=== PATIENT | female | born 1930 | race Caucasian/White ===

== ENCOUNTER 2016-11-03 15:39 | Emergency (ER) | payer OTHER ==
[2016-11-03 16:34] LABS: MANUAL DIFF NEEDED? NO
[2016-11-03 16:37] LABS: BASO% 0.7 % (0.0-0.8); EOS# 0.59 X1000 (0.0-0.7); EOS% 10.3 % (0.0-10.0); HEMATOCRIT 36.2 % (37.0-47.0); HEMOGLOBIN 11.9 g/dL (12.0-16.0); LYMPH# 1.36 X1000 (1.2-3.4); LYMPH% 23.7 % (20.5-51.1); MCH 30.5 PG (27-31); MCHC 32.9 g/dL (33-37); MCV 92.8 FL (81-99); MONO# 0.57 X1000 (0.11-0.59); MONO% 9.9 % (1.7-9.3); MPV 9.5 FL (7.4-10.4); NEUT% 55.4 % (42.2-75.2); PLT 206 X1000 (130-400)
[2016-11-03 17:00] LABS: AGAP 15; ALBUMIN 3.7 g/dL (3.5-5.0); ALKALINE PHOSPHATASE 71 U/L (32-104); BUN 6 mg/dL (8-22); CALCIUM 8.7 mg/dL (8.8-10.2); CHLORIDE 94 mmol/L (98-107); COSMO 265; GOT 29 U/L (10-30); GPT 24 U/L (10-36); POTASSIUM 3.7 mmol/L (3.5-5.1); SODIUM 133 mmol/L (136-145); TCO2 24 mmol/L (25-35); TOTAL BILIRUBIN 0.37 mg/dL (0.20-1.00); TOTAL PROTEIN 5.9 g/dL (6.3-8.3)
--- NOTE | 2016-11-03 17:00 | PROVIDER DOCUMENTATION ---
HPI-Respiratory General - General Source: patient - History of Present Illness-Resp Quality of Pain: reports: tightness Severity in ED: reports: moderate Onset/Duration: reports: gradual, other (2016) Timing: reports: still present, constant, getting worse Context: denies: recent URI, out of meds Cough Quality/Degree: reports: no cough Episode Frequency: occasional episodes Current Respiratory Medication Therapy: Initiated see nurses note Modifying Factors: worse with: exertion Associated Symptoms: reports: shortness of breath, short of breath. denies: cough, fever/chills, flu-like symptoms, lightheadedness, nasal congestion, nasal drainage, wheezing Similar Symptoms Previously?: No Recently seen or treated by another doctor?: No <Reyes Biggs - Last Filed: 11/03/16 17:32> - General Source: patient, family - History of Present Illness-Resp Quality of Pain: reports: none Severity in ED: reports: mild Onset/Duration: reports: 1 week ago Timing: reports: getting worse Exposure: reports: unknown cause Cough Quality/Degree: reports: no cough Episode Frequency: rare episodes Current Respiratory Medication Therapy: Initiated albuterol/atrovent inhale Associated Symptoms: reports: shortness of breath, wheezing Similar Symptoms Previously?: Yes Recently seen or treated by another doctor?: Yes <Camacho Raphael - Last Filed: 11/03/16 18:34> - General Chief Complaint: Shortness of Breath Stated Complaint: EDEMA/LEGS/CHEST PRESSURE Time Seen by Provider: 11/03/16 15:55 Allergies/Adverse Reactions: Patient Allergies Allergy/AdvReac Type Severity Reaction Status Date / Time No Known Allergies Allergy Verified 11/03/16 16:41 Home Medications: Home Medication List Medication Instructions Recorded Confirmed Last Taken Type Esomeprazole Magnesium [Nexium 40 mg PO DAILY 04/17/15 11/03/16 11/10/15 History 24Hr] Levothyroxine [Synthroid] 125 microgm PO DAILY #0 tablet 04/21/15 11/03/1611/09 Rx Rivaroxaban [Xarelto] 20 mg PO DAILY 11/09/15 11/03/16 11/09/15 History Losartan Potassium [Cozaar] 100 mg PO QAM 11/12/15 11/03/16 Unknown History Albuterol [Albuterol Neb] 2.5 mg .SEE ORDER DIRECTED 11/03/16 11/03/16 Unknown History Amoxicillin [Amoxil] 250 mg PO QAM 11/03/16 11/03/16 Unknown History Furosemide [Lasix] 20 mg PO BID #60 tablet 11/03/16 Unknown Rx Levofloxacin [Levaquin] 500 mg PO DAILY #7 tablet 11/03/16 Unknown Rx Levothyroxine [Synthroid] 150 microgm PO DAILY 11/03/16 11/03/16 Unknown History - History of Present Illness-Resp Nature of Presenting Problem: patient is a 86 yo F that presents to Er with shortness of breath and leg swelling/erythema. Patient's symptoms have been going on for months. denies chest pain, fever/chills, or cough. has appointment with pcp tomorrow. (Reyes Biggs) 86 YO wf, NON SMOKER, C/O SOB, ORTHOPNEA AND GUILLEN. DENIES CP (Camacho Raphael ) Review of Systems - Adult - REVIEW OF SYSTEMS - ADULT Constitutional: denies: chills, fever Eyes: reports: no symptoms reported Ears, Nose, Mouth & Throat: reports: no symptoms reported Cardiovascular: reports: edema. denies: chest pain, palpitations, syncope Respiratory: reports: shortness of breath. denies: cough, wheezing Gastrointestinal: denies: abdominal pain, diarrhea, nausea, vomiting Genitourinary: reports: no symptoms reported Musculoskeletal: reports: no symptoms reported Integumentary: reports: see HPI Neurological: reports: no symptoms reported Psychiatric: reports: no symptoms reported Endocrine: reports: no symptoms reported Hematologic/Lymphatic: reports: no symptoms reported Allergic/Immunologic: reports: no symptoms reported All Other Systems: Reviewed and Negative <Reyes Biggs - Last Filed: 11/03/16 17:32> - REVIEW OF SYSTEMS - ADULT Constitutional: reports: no symptoms reported Eyes: reports: no symptoms reported Ears, Nose, Mouth & Throat: reports: no symptoms reported Cardiovascular: reports: see HPI, edema, irregular heart rate, orthopnea, PND Respiratory: reports: see HPI, dyspnea on exertion, shortness of breath, wheezing Gastrointestinal: reports: no symptoms reported Genitourinary: reports: no symptoms reported Musculoskeletal: reports: no symptoms reported Integumentary: reports: no symptoms reported Neurological: reports: no symptoms reported Psychiatric: reports: no symptoms reported Endocrine: reports: no symptoms reported Hematologic/Lymphatic: reports: no symptoms reported Allergic/Immunologic: reports: no symptoms reported <Camacho Raphael - Last Filed: 11/03/16 18:34> Past History - Adult - PAST MEDICAL HISTORY-ADULT Review of Records: reports: Old Records Reviewed, Nursing Assessment Review, Medications Reviewed Cardiovascular: reports: arrhythmia, HTN - IMMUNIZATION STATUS Childhood Immunizations: See Nurse Assessment Flu Vaccine: See Nurse Assessment - FAMILY HISTORY Family History: reviewed, not pertinent <Reyes Biggs - Last Filed: 11/03/16 17:32> - PAST MEDICAL HISTORY-ADULT Review of Records: reports: Old Records Reviewed, Nursing Assessment Review, Medications Reviewed Major Childhood Illnesses: reports: denies history <Camacho Raphael - Last Filed: 11/03/16 18:34> Physical Exam-General - PHYSICAL EXAM-ADULT Initial Vital Signs Reviewed: Yes - CONSTITUTIONAL General Appearance: alert, no apparent distress - EYES Eyes: PERRL/EOMI, pink conjunctivae - HEAD, EARS, NOSE, MOUTH & THROAT HENMT: normocephalic/atraumatic, moist mucous membranes, normal ENT inspection - NECK Neck: full range of motion, normal inspection - RESPIRATORY Respiratory: no respiratory distress, no accessory muscle use, rales (bibasilar scattered) - CARDIOVASCULAR Cardiovascular: regular rate, rhythm, no JVD, no murmur - GASTROINTESTINAL (ABDOMEN) Abdominal Exam: normal bowel sounds, non tender, soft, no organomegaly, no pulsatile mass - MUSCULOSKELETAL Extremity: normal capillary refill, erythema (bilateral lower leg), pedal edema (3 plus pitting edema bilaterally) - SKIN Integumentary: normal turgor, warm/dry - NEUROLOGIC Neurologic: grossly normal, no motor/sensory deficits - PSYCHIATRIC Psych/Mental Status: normal mood/affect, normal thought content, normal thought process, oriented x 3 <Reyes Biggs - Last Filed: 11/03/16 17:32> - PHYSICAL EXAM-ADULT Initial Vital Signs Reviewed: Yes - CONSTITUTIONAL General Appearance: appears well, alert, no apparent distress - EYES Eyes: PERRL/EOMI, pink conjunctivae - HEAD, EARS, NOSE, MOUTH & THROAT HENMT: normocephalic/atraumatic, moist mucous membranes, normal ENT inspection - NECK Neck: non-tender, full range of motion - RESPIRATORY Respiratory: chest non-tender, lungs clear, normal breath sounds - CARDIOVASCULAR Cardiovascular: normal peripheral pulses, irregularly irregular - GASTROINTESTINAL (ABDOMEN) Abdominal Exam: normal bowel sounds, non tender, soft - LYMPHATIC Lymphatic: no adenopathy - MUSCULOSKELETAL Back Exam: normal inspection Extremity: erythema, pedal edema Peripheral Pulses: radial (R): 3+, radial (L): 3+ - SKIN Integumentary: normal color - NEUROLOGIC Neurologic: grossly normal <Camacho Raphael - Last Filed: 11/03/16 18:34> Progress - EKG 1 Rhythm: NSR - XRAY 1 XRAY Study: Chest Impression: Abnormal XRAY Interpretation: stable chest <Reyes Biggs - Last Filed: 11/03/16 17:32> <Camacho Raphael - Last Filed: 11/03/16 18:34> - PLAN OF CARE/RESULTS Progress/Plan/Lab Results: Laboratory Tests 11/03/16 11/03/16 11/03/16 15:32 15:32 15:32 WBC 5.73 RBC 3.90 L Hgb 11.9 L Hct 36.2 L MCV 92.8 MCH 30.5 MCHC 32.9 L RDW Std Deviation 12.4 Plt Count 206 MPV 9.5 Immature Gran % (Auto) 0.0 Neut % (Auto) 55.4 Lymph % (Auto) 23.7 [place] % (Auto) 9.9 H Eos % (Auto) 10.3 H Baso % (Auto) 0.7 Immature Gran # (Auto) 0.00 Neut # (Auto) 3.17 Lymph # (Auto) 1.36 Knott # (Auto) 0.57 Eos # (Auto) 0.59 Baso # (Auto) 0.04 Sodium 133 L Potassium 3.7 Chloride 94 L Carbon Dioxide 24 L Anion Gap 15 BUN 6 L Creatinine 0.8 Estimated GFR/1.73 m2 > 60 BUN/Creatinine Ratio 8 Glucose 117 H Calculated Osmolality 265 Calcium 8.7 L Total Bilirubin 0.37 AST 29 ALT 24 Alkaline Phosphatase 71 Total Protein 5.9 L Albumin 3.7 Globulin 2.2 Albumin/Globulin Ratio 1.7 TSH 0.57 Urine Source Urine Color Urine Turbidity Urine pH Ur Specific [place] Urine Protein Ur Glucose (Stick) Ur Ketones (Stick) Urine Blood Urine Nitrite Urine Bilirubin Urobilinogen Dipstick Urine Leukocytes Urine WBC (Auto) Urine RBC (Auto) U Epithel Cells (Auto) Urine Bacteria (Auto) 11/03/16 17:04 WBC RBC Hgb Hct MCV MCH MCHC RDW Std Deviation Plt Count MPV Immature Gran % (Auto) Neut % (Auto) Lymph % (Auto) [place] % (Auto) Eos % (Auto) Baso % (Auto) Immature Gran # (Auto) Neut # (Auto) Lymph # (Auto) [place] # (Auto) Eos # (Auto) Baso # (Auto) Sodium Potassium Chloride Carbon Dioxide Anion Gap BUN Creatinine Estimated GFR/1.73 m2 BUN/Creatinine Ratio Glucose Calculated Osmolality Calcium Total Bilirubin AST ALT Alkaline Phosphatase Total Protein Albumin Globulin Albumin/Globulin Ratio TSH Urine Source CLEAN CATCH Urine Color YELLOW Urine Turbidity CLEAR Urine pH 6.5 Ur Specific [place] 1.003 Urine Protein NEGATIVE Ur Glucose (Stick) NEGATIVE Ur Ketones (Stick) NEGATIVE Urine Blood SMALL A Urine Nitrite NEGATIVE Urine Bilirubin NEGATIVE Urobilinogen Dipstick NORMAL Urine Leukocytes NEGATIVE Urine WBC (Auto) <10 Urine RBC (Auto) <10 U Epithel Cells (Auto) <10 Urine Bacteria (Auto) NEGATIVE Orders Category Date Time Status CHEST-PORTABLE [RAD] Stat Exams 11/03/16 16:27 Completed BNP [PRO B-NATRIURETIC PEPTIDE] Stat Lab 11/03/16 17:39 Ordered CBC WITH ELECTRONIC DIFF [HEME] Stat Lab 11/03/16 15:32 Completed COMPREHENSIVE METABOLIC PANEL [CHEM] Stat Lab 11/03/16 15:32 Completed TSH Stat Lab 11/03/16 15:32 Completed UA NIMS W/REFLEX CULT [URINALYSIS] Stat Lab 11/03/16 17:04 Completed EKG [EKG] Stat Ther 11/03/16 15:47 Ordered Vital Signs Temp Pulse Resp BP Pulse Ox 11/03/16 15:41 98.0 F 80 22 180/74 98 No Known Allergies Allergy (Verified 11/03/16 16:41) Esomeprazole Magnesium [Nexium 24Hr] 40 mg PO DAILY 04/17/15 Levothyroxine [Synthroid] 125 microgm PO DAILY #0 tablet 04/21/15 Rivaroxaban [Xarelto] 20 mg PO DAILY 11/09/15 Losartan Potassium [Cozaar] 100 mg PO QAM 11/12/15 Albuterol [Albuterol Neb] 2.5 mg .SEE ORDER DIRECTED 11/03/16 Amoxicillin [Amoxil] 250 mg PO QAM 11/03/16 Levothyroxine [Synthroid] 150 microgm PO DAILY 11/03/16 Laboratory 11/03/16 11/03/16 11/03/16 17:04 15:32 15:32 WBC RBC Hgb Hct MCV MCH MCHC RDW Std Deviation Plt Count MPV Immature Gran % (Auto) Neut % (Auto) Lymph % (Auto) [place] % (Auto) Eos % (Auto) Baso % (Auto) Immature Gran # (Auto) Neut # (Auto) Lymph # (Auto) [place] # (Auto) Eos # (Auto) Baso # (Auto) Sodium 133 L Potassium 3.7 Chloride 94 L Carbon Dioxide 24 L Anion Gap 15 BUN 6 L Creatinine 0.8 Estimated GFR/1.73 m2 > 60 BUN/Creatinine Ratio 8 Glucose 117 H Calculated Osmolality 265 Calcium 8.7 L Total Bilirubin 0.37 AST 29 ALT 24 Alkaline Phosphatase 71 Total Protein 5.9 L Albumin 3.7 Globulin 2.2 Albumin/Globulin Ratio 1.7 TSH 0.57 Urine Source CLEAN CATCH Urine Color YELLOW Urine Turbidity CLEAR Urine pH 6.5 Ur Specific [place] 1.003 Urine Protein NEGATIVE Ur Glucose (Stick) NEGATIVE Ur Ketones (Stick) NEGATIVE Urine Blood SMALL A Urine Nitrite NEGATIVE Urine Bilirubin NEGATIVE Urobilinogen Dipstick NORMAL Urine Leukocytes NEGATIVE Urine WBC (Auto) <10 Urine RBC (Auto) <10 U Epithel Cells (Auto) <10 Urine Bacteria (Auto) NEGATIVE 11/03/16 15:32 WBC 5.73 RBC 3.90 L Hgb 11.9 L Hct 36.2 L MCV 92.8 MCH 30.5 MCHC 32.9 L RDW Std Deviation 12.4 Plt Count 206 MPV 9.5 Immature Gran % (Auto) 0.0 Neut % (Auto) 55.4 Lymph % (Auto) 23.7 [place] % (Auto) 9.9 H Eos % (Auto) 10.3 H Baso % (Auto) 0.7 Immature Gran # (Auto) 0.00 Neut # (Auto) 3.17 Lymph # (Auto) 1.36 [place] # (Auto) 0.57 Eos # (Auto) 0.59 Baso # (Auto) 0.04 Sodium Potassium Chloride Carbon Dioxide Anion Gap BUN Creatinine Estimated GFR/1.73 m2 BUN/Creatinine Ratio Glucose Calculated Osmolality Calcium Total Bilirubin AST ALT Alkaline Phosphatase Total Protein Albumin Globulin Albumin/Globulin Ratio TSH Urine Source Urine Color Urine Turbidity Urine pH Ur Specific [place] Urine Protein Ur Glucose (Stick) Ur Ketones (Stick) Urine Blood Urine Nitrite Urine Bilirubin Urobilinogen Dipstick Urine Leukocytes Urine WBC (Auto) Urine RBC (Auto) U Epithel Cells (Auto) Urine Bacteria (Auto) (Camacho Raphael) Departure <Reyes Biggs - Last Filed: 11/03/16 17:32> - Departure Time of Disposition Order: 18:04 Certified Medical Emergency: Emergent <Camacho Raphael - Last Filed: 11/03/16 18:34> - Departure DIAGNOSIS: Congestive heart failure (CHF) Qualifiers: Congestive heart failure type: combined Congestive heart failure chronicity: acute on chronic Qualified Code(s): I50.43 - Acute on chronic combined systolic (congestive) and diastolic (congestive) heart failure Cellulitis Qualifiers: Site of cellulitis of extremity: lower extremity Disposition: HOME 01 Condition: Fair Prescriptions: Furosemide [Lasix] 20 mg PO BID #60 tablet Levofloxacin [Levaquin] 500 mg PO DAILY #7 tablet Referrals: Luca Anderson MD [Primary Care Provider] - Attestation - Scribe Verification/Attestation Scribe:: Reyes Biggs Acting as Scribe for:: Camacho Raphael Scribe documention review:: This chart was documented by a scribe and accurately reflects the service the provider performed and the decisions made by the provider. <Reyes Biggs - Last Filed: 11/03/16 17:32> Physician Attestation - Physician Attestation I, the provider, attest to the following statement:: Camacho Raphael Physician documentation Attestation:: This documentation recorded by the scribe accurately reflects the service I personally performed and the decisions made by me. <Reyes Biggs - Last Filed: 11/03/16 17:32>
--- NOTE | 2016-11-03 17:01 | Diag Imaging Result Document ---
PROCEDURE NAME: CHEST-PORTABLE - 11/03/2016 AP PORTABLE CHEST: TIME: 1635 hours FINDINGS: The appearance of the chest has not changed significantly since 11/13/2015 considering differences in inspiration. The right hemidiaphragm is somewhat elevated as it was on the previous study and that of 11/09/2015. IMPRESSION: Stable chest.
[2016-11-03 17:05] LABS: URINE CULTURE NEEDED? NO; URINE MICRO REVIEW NEEDED? NO; URINE SOURCE CLEAN CATCH
[2016-11-03 17:10] LABS: BILIRUBIN URINE NEGATIVE (NEGATIVE); BLOOD URINE SMALL (NEGATIVE); COLOR YELLOW; GLUCOSE URINE NEGATIVE (NEGATIVE); LEUKOCYTES URINE NEGATIVE (NEGATIVE); NITRITE URINE NEGATIVE (NEGATIVE); PH URINE 6.5; PROTEIN URINE NEGATIVE (NEGATIVE); SP GRAVITY URINE 1.003; TURBIDITY URINE CLEAR (CLEAR); UROBILINOGEN URINE NORMAL (NORMAL)
[2016-11-03 17:12] LABS: UR EPITHELIAL CELLS <10 /HPF (<10); URINE BACTERIA NEGATIVE /HPF; URINE RBC <10 /HPF (<10); URINE WBC <10 /HPF (<10)
--- NOTE | 2016-11-03 17:20 | ED EKG INTERP ---
EKG Interpretation - EKG Time of EKG reading by physician:: 15:54 EKG Read and Signed by:: Rudolph Avila EKG Interpretation (*Must complete 3 of following elements*): Abnormal Rate: 72 Rhythm: NSR [place]: normal QRS: normal ST Wave: non-specific ST changes Comments: Prolonged QT Attestation - Scribe Verification/Attestation Scribe:: Reyes Biggs Acting as Scribe for:: Rudolph Avila Scribe documention review:: This chart was documented by a scribe and accurately reflects the service the provider performed and the decisions made by the provider. Physician Attestation - Physician Attestation I, the provider, attest to the following statement:: Rudolph Avila Physician documentation Attestation:: This documentation recorded by the scribe accurately reflects the service I personally performed and the decisions made by me.
[2016-11-03] MEDS ORDERED: LASIX LIQUID PO ONE (18:18)
[2016-11-03] MEDS ORDERED: LEVAQUIN PO ONE (18:31)
[2016-11-03 18:32] VITALS: BP 158/88
--- NOTE | 2016-11-04 06:02 | EKG Report ---
Test Performed on : 11/03/2016 3:54:26 PM Test Reason : sob Blood Pressure : / mmHG Vent. Rate : 072 BPM Atrial Rate : 072 BPM P-R Int : 168 ms QRS Dur : 084 ms QT Int : 436 ms P-R-T Axes : 087 054 074 degrees QTc Int : 477 ms Normal sinus rhythm. Nonspecific T wave abnormality Prolonged QT Abnormal ECG When compared with ECG of 12-NOV-2015 09:14, No significant change was found Unconfirmed Result
== END 2016-11-03 19:18 | disposition home or self-care (01) ==
LOC: ED 15:39
DX: I50.43 Acute on chronic combined systolic (congestive) and diastolic (congestive) heart failure (principal); L03.115 Cellulitis of right lower limb; L03.116 Cellulitis of left lower limb; R06.02 Shortness of breath; R06.2 Wheezing; R22.40 Localized swelling, mass and lump, unspecified lower limb; R06.01 Orthopnea; R06.09 Other forms of dyspnea; Z79.899 Other long term (current) drug therapy; R60.9 Edema, unspecified; I49.9 Cardiac arrhythmia, unspecified; I10 Essential (primary) hypertension; Z79.01 Long term (current) use of anticoagulants
CPT/HCPCS: 36415; 71010; 80053; 81001; 83880; 84443; 85025; 93005; 99284

== ENCOUNTER 2017-04-08 17:40 | Inpatient (IN) ==
[2017-04-08 19:33] LABS: MANUAL DIFF NEEDED? NO
[2017-04-08 19:38] LABS: BASO% 0.5 % (0.0-0.8); EOS# 0.21 X1000 (0.0-0.7); EOS% 3.3 % (0.0-10.0); HEMATOCRIT 33.4 % (37.0-47.0); HEMOGLOBIN 10.9 g/dL (12.0-16.0); IMM GRAN# 0.05 X1000 (0.0-0.04); IMM GRAN% 0.8 % (0.0-0.5); LYMPH# 1.25 X1000 (1.2-3.4); LYMPH% 19.6 % (20.5-51.1); MCH 30.3 PG (27-31); MCHC 32.6 g/dL (33-37); MCV 92.8 FL (81-99); MONO# 0.57 X1000 (0.11-0.59); MONO% 8.9 % (1.7-9.3); MPV 9.6 FL (7.4-10.4); NEUT% 66.9 % (42.2-75.2); PLT 216 X1000 (130-400)
[2017-04-08 19:47] LABS: INR 1.15; PROTIME 12.2 Seconds (9.2-11.7); PTT 25.8 Seconds (22.0-36.0)
[2017-04-08 19:48] LABS: AGAP 16; ALBUMIN 3.5 g/dL (3.5-5.0); ALKALINE PHOSPHATASE 75 U/L (32-104); BUN 17 mg/dL (8-22); CALCIUM 8.4 mg/dL (8.8-10.2); CHLORIDE 97 mmol/L (98-107); COSMO 281; GOT 22 U/L (10-30); GPT 12 U/L (10-36); POTASSIUM 4.7 mmol/L (3.5-5.1); SODIUM 139 mmol/L (136-145); TCO2 26 mmol/L (25-35); TOTAL BILIRUBIN 0.32 mg/dL (0.20-1.00); TOTAL PROTEIN 6.3 g/dL (6.3-8.3)
--- NOTE | 2017-04-08 20:07 | Diag Imaging Result Doc PS360 ---
EXAM: HEAD/C-SPINE W/O CONTRAST HISTORY: fall, pain TECHNIQUE: CT of the head with out contrast; CT of the cervical spine, decreased dose (clarity.) COMMENT: There are calcifications in the left vertebral and both internal carotid arteries. There are patchy lucencies in the white matter of both hemispheres. There is no evidence of mass effect, bleed, or abnormal extra-axial fluid collection. The white matter changes appear to be worse than on the previous examination of 02/01/2012 particularly in the periatrial region of both parietal lobes. There are no acute bony abnormalities. Cervical spine: There is multilevel hypertrophic facet arthropathy. This appears worse on the right at the C2-3 level and on the left at the C3-4 level. There is no evidence of acute fracture or subluxation. The facets are aligned. No prevertebral soft tissue swelling is present. IMPRESSION: 1. Chronic ischemic microvascular disease. No evidence of acute intracranial disease. 2. Degenerative facet arthropathy. No evidence of acute bony disease in the cervical spine. Electronically signed by Howard Briggs 04/08/2017 8:05 PM
--- NOTE | 2017-04-08 20:11 | Diag Imaging Result Doc PS360 ---
EXAM: PELVIS W/O CONTRAST HISTORY: fall and pain TECHNIQUE: CT of the bony pelvis COMMENT: There are degenerative facet changes at L4-5 and vacuum disc phenomenon at L5-S1 and L4-5. There is a nondisplaced fracture of the anterior and posterior left pubic ramus. The fracture may also extend through the body of the pubic bone. These findings were not present on 12/05/2012. IMPRESSION: Nondisplaced fractures in the pubic bone and pubic ramus on the left. Electronically signed by Howard Briggs 04/08/2017 8:09 PM
[2017-04-09] MEDS ORDERED: MORPHINE IV PRN (00:25)
[2017-04-09] MEDS ORDERED: ALLEGRA PO PRN (00:25)
[2017-04-09] MEDS: XANAX PO SCH ×2 (01:50→22:10)
--- NOTE | 2017-04-09 04:15 | HISTORY AND PHYSICAL ---
PRIMARY CARE PHYSICIAN: Dr. Luca Anderson. CHIEF COMPLAINT: Mechanical fall and hip pain. HISTORY OF PRESENT ILLNESS: Ms. Kern is an 86-year-old lady with a past medical history significant for diabetes, DVTs and PEs in 2015, hypertension, and hypothyroidism who comes to the hospital complaining of hip pain after sustaining a fall. The patient states that this is the 2nd time that she tripped. Approximately a month ago, the patient had a fall and fractured her tibia and since then, she has been in a cast and recently was put in a boot for her right foot. The patient thinks that when she walks, her foot gets caught on the floor and this causes her to trip. The patient denies any previous symptoms to the fall such as chest pain, shortness of breath, dizziness. About 1 week ago, patient sustained a fall but she was able to get up with her family's help. Today, patient pressed the button on her necklace to call EMS and since the pain was fairly significant over her hip, she was brought to the hospital. REVIEW OF SYSTEMS: Patient is complaining of bilateral hip pain, worse on the left side. She is also complaining of neck pain and right shoulder pain but this happened since her 1st fall about a week ago. All other systems are negative except as stated above. PAST MEDICAL HISTORY: 1. Abnormal electrocardiogram with nonspecific T-wave abnormalities. 2. Allergic rhinitis. 3. Choledocholithiasis. 4. Diabetes type 2. 5. GERD. 6. Deep vein thrombosis with associated pulmonary embolism in 2014. 7. Hyperlipidemia. 8. Hypertension. 9. Hypothyroidism. 10. Meniere's disease. 11. Osteoarthritis. 12. Osteopenia. 13. Polymyalgia rheumatica. 14. Hypertriglyceridemia. PAST SURGICAL HISTORY: 1. Cholecystectomy. 2. Knee replacement. 3. Thyroidectomy in 1968. ALLERGIES: The patient states she is allergic to TERENCE inhibitors, Aleve, clonidine, Crestor, hydrochlorothiazide, Lotrel, Norvasc, and Plendil. HOME MEDICATIONS: 1. Losartan 100 mg 1 tablet oral daily. 2. Levothyroxine 150 mg tablet 1 a day. 3. Prednisone 25 mg once a day. 4. Xarelto 20 mg oral daily. 5. Furosemide 20 mg tablet twice a day. 6. Citalopram 5 mg tablet oral daily. 7. Alprazolam 0.25 mg tablet at night. 8. [place] 150 mg 1 tablet oral daily. 9. Centrum Silver 1 tablet oral daily. 10. Aleve 2 tablets oral twice a day. 11. Potassium 8 mEq once a day. 12. Albuterol sulfate 2 or 3 times p.r.n. shortness of breath. 13. Oxygen at night. 14. Nexium 20 mg once a day. SOCIAL HISTORY: The patient denies using ever tobacco. She does not use alcohol or illicit drugs. PHYSICAL EXAMINATION: VITAL SIGNS: Temperature 97.3 degrees, pulse 90, respirations 18, blood pressure 149/78, oxygen saturation 98% on room air. GENERAL: Patient is alert and oriented x3. No acute distress. HEENT: Head is normocephalic, atraumatic. Eyes, [place]. Moist mucous membranes. NECK: Supple. No JVD. PULMONARY: Well-ventilated bilaterally. No wheezing, rales, or crackles. CARDIOVASCULAR: S1, S2. No rubs, murmurs, or gallops. ABDOMEN: Soft, nondistended, nontender. EXTREMITY: No lower extremity edema. The patient is unable to move in 1 of her extremities, especially the left side due to the pain that she is experiencing secondary to this fracture. The patient has palpable pedal pulses. Lower extremities are well perfused. NEUROLOGIC: Cranial nerves 2-12 are grossly intact. PSYCHIATRIC: Normal mood and affect. LAB DATA: White blood cell count 6.37, hemoglobin 10.9, hematocrit 33.4, platelets 216,000. Sodium 139, potassium 4.7, BUN 17, creatinine 0.8, glucose 132. LFTs within normal limits. INR 1.15. DIAGNOSTIC IMAGING: Head CT shows chronic ischemic microvascular disease. No evidence of acute intracranial disease. Pelvis CT shows nondisplaced fractures in the pubic bone and pubic ramus on the left side. ASSESSMENT AND PLAN: 1. Fracture of the pubic bone and pubic ramus. Orthopedic will be consulted. The patient's pain will be managed with intravenous morphine. Nothing per oral after midnight and patient is on fall precautions and strict bed rest until she is seen by orthopedics. Since it is possible that the patient might go to the operating room tomorrow, at the moment we will hold her home medications, Xarelto and aspirin. 2. History of deep venous thromboses and pulmonary embolisms. As mentioned above, we will hold Xarelto and aspirin until the patient's surgery status is decided. 3. Hypertension. We will continue patient's home medication, losartan, furosemide. 4. Hypothyroidism. We will continue patient's home medication, levothyroxine 150 mcg. 5. Osteopenia. Patient might need to be on vitamin D and calcium as well, and to avoid any further deterioration, it would be recommended that the patient stops using proton pump inhibitors. CODE STATUS: Full code. cc: MD Luca Morin MD
[2017-04-09 04:23] LABS: URINE CULTURE NEEDED? NO; URINE MICRO REVIEW NEEDED? NO; URINE SOURCE CATH
[2017-04-09 04:26] LABS: BILIRUBIN URINE NEGATIVE (NEGATIVE); BLOOD URINE NEGATIVE (NEGATIVE); COLOR YELLOW; GLUCOSE URINE NEGATIVE (NEGATIVE); LEUKOCYTES URINE NEGATIVE (NEGATIVE); NITRITE URINE NEGATIVE (NEGATIVE); PH URINE 6.5; PROTEIN URINE NEGATIVE (NEGATIVE); SP GRAVITY URINE 1.008; TURBIDITY URINE CLEAR (CLEAR); UROBILINOGEN URINE NORMAL (NORMAL)
[2017-04-09 04:27] LABS: UR EPITHELIAL CELLS <10 /HPF (<10); URINE BACTERIA NEGATIVE /HPF; URINE RBC <10 /HPF (<10); URINE WBC <10 /HPF (<10)
[2017-04-09 06:19] LABS: HEMATOCRIT 32.9 % (37.0-47.0); HEMOGLOBIN 10.6 g/dL (12.0-16.0); MCH 29.9 PG (27-31); MCHC 32.2 g/dL (33-37); MCV 92.9 FL (81-99); MPV 9.1 FL (7.4-10.4); RBC 3.54 XMIL (4.2-5.4)
[2017-04-09] MEDS: SYNTHROID PO SCH (07:48)
[2017-04-09] MEDS: LEXAPRO PO SCH (08:35)
[2017-04-09] MEDS: LASIX PO SCH ×2 (08:35→22:10)
[2017-04-09] MEDS: COZAAR PO SCH (08:36)
[2017-04-09] MEDS: PREDNISONE PO SCH (08:36)
[2017-04-09] MEDS: CENTRUM SILVER PO SCH (08:36)
[2017-04-09] MEDS ORDERED: NORCO-7.5 PO PRN (09:39)
--- NOTE | 2017-04-09 11:26 | CONSULTATION ---
DATE OF CONSULTATION: 04/09/2017 HISTORY: The patient is a pleasant, 86-year-old female, who is status post fall at home yesterday. She reports the development of pain and discomfort in the left hip. She is status post a fall approximately a month ago, sustaining a right distal tibia fracture, and was treated initially in a cast, and is currently using a walking boot for ambulation. She is unsure, but feels that her foot gets caught on the floor, causing her to trip. She also reports a subsequent fall approximately a week ago. However, was able to get herself up. She was seen in the emergency room, and CT of the pelvis revealed a fracture involving the left pubic ramus. Orthopedic consultation was requested. MEDICATIONS: Losartan 100 mg 1 p.o. daily, levothyroxine 150 mg p.o. daily, prednisone 25 mg p.o. daily, Xarelto 20 mg p.o. daily, furosemide 20 mg twice a day, citalopram 5 mg p.o. daily, alprazolam 0.25 mg p.o. at bedtime, Ashanti 150 mg 1 p.o. daily, Centrum Silver 1 p.o. daily, Aleve 2 tablets p.o. twice a day, potassium 8 mEq once a day, albuterol sulfate 2 to 3 times a day p.r.n. shortness of breath, oxygen at night, Nexium 20 mg p.o. daily. ALLERGIES: TERENCE inhibitors, clonidine, Crestor, hydrochlorothiazide, Lotrel, Norvasc, and Plendil. PAST MEDICAL HISTORY: Diabetes type 2, gastroesophageal reflux disease, deep vein thrombosis with associated pulmonary embolism in 2014, hyperlipidemia, hypertension, hypothyroidism, Meniere's disease, osteoarthritis, osteopenia, polymyalgia rheumatica, hypertriglyceridemia, abnormal electrocardiogram with nonspecific T-wave abnormalities, allergic rhinitis. PAST SURGICAL HISTORY: Cholecystectomy, right knee replacement, thyroidectomy in 1968. PHYSICAL EXAMINATION: The patient is awake, alert, and cooperative with the exam. Her bilateral upper extremities: Able to actively elevate her arm without difficulty. She has no palpable deformity. She does have tenderness to palpation along the left posterior and lateral buttock region. Discomfort in the left groin with lateral compression. She has no crepitus, with gentle range of motion of the hip. She does has some diffuse tenderness to palpation on the knee, which is chronic secondary osteoarthritis. Calf is soft. She is grossly neurovascularly intact. Right knee has well-healed incision and scar. Right ankle has no significant tenderness to palpation, and able to actively dorsiflex her ankle. No pain on range of motion of the hip. IMAGING: CT scan of the pelvis revealed left pubic ramus. IMPRESSION: Left pubic rami fracture. PLAN: At this point, discussed treatment options with the patient and family. At this time, will consult Physical Therapy, and the patient will be weightbearing as tolerated on the left lower extremity. She will continue using her walking boot to the right lower extremity. All questions were answered. cc: MD Luca Bhandari MD
--- NOTE | 2017-04-09 16:42 | PROGRESS NOTE ---
DATE: 04/09/2017 SUBJECTIVE: The patient was admitted yesterday, having sustained a fall. Full evaluation was pursued revealing a pubic and pubic ramus fracture. Patient was placed on adequate pain medication intervention. Her Xarelto was held overnight until surgical opinion had been made. This morning, Dr. Motta evaluated patient. No surgical intervention was deemed warranted. Physical therapy was initiated. Upon my arrival, patient was in good spirits. She noted pain with movement, but was quite comfortable resting in bed. She denied fevers, chills, nausea, vomiting, shortness of breath, or chest discomfort. OBJECTIVE: Vital signs: Temperature maximum degrees, heart rate 56-77, respirations 16, weight is 21, blood pressure 115 to 166/54 to 84. General: Well nourished, well developed, in no acute distress. Cardiovascular: Regular rate and rhythm. No significant murmurs, rubs, or gallops. Pulmonary: Clear to auscultation bilaterally. Abdomen: Soft, nontender, nondistended. Positive bowel sounds. Extremities: Moves all extremities well. No significant clubbing, cyanosis or edema. Dermatologic: Evaluation reveals no evidence of rash. LABORATORY DATA: White blood cell count 5.82, hemoglobin 10.6, hematocrit 32.9, bilirubin count 190,000. ASSESSMENT AND PLAN: 1. Pubic bone and pubic ramus fracture on the left-surgical intervention has not been deemed warranted. I appreciate Dr. Motta's consultation. For now, we will treat this conservatively. We will start patient on physical therapy. We will add as needed tramadol, in addition to her underlying morphine. We will follow patient's clinical course closely over the next 24-48 hours. We will determine if inpatient rehabilitation versus outpatient physical therapy is warranted. 2. History of deep venous thrombosis with multiple pulmonary thromboembolisms. Patient is being treated with lifelong Xarelto and aspirin. Xarelto was held last night. We will resume therapy. We will follow this. 3. Polymyalgia rheumatica-we will continue patient on prednisone therapy. She has no evidence of adrenal insufficiency at present time. 4. Hypertension-we will continue her home medications. 5. Disposition-at this point, patient continues to require half-way care in a hospital setting. We will plan discharge home once appropriate. cc: Luca Anderson MD
[2017-04-09] MEDS: XARELTO PO SCH (17:13)
[2017-04-10] MEDS: SYNTHROID PO SCH (06:39)
--- NOTE | 2017-04-10 06:58 | PROGRESS NOTE ---
DATE: 04/10/2017 CLINICAL HISTORY: The patient is an 86-year-old female who is status post fall sustaining a left pubic rami fracture. She is currently resting comfortably and has no complaints. PHYSICAL EXAMINATION: Left hip has no crepitus to range of motion. Does have an expected discomfort however. Calf is soft. IMPRESSION: Left pubic rami fracture. PLAN: At this point, we will consult Physical therapy. Patient will be weightbearing as tolerated left lower extremity. All questions answered. cc: MD Luca Bhandari MD
[2017-04-10] MEDS: LEXAPRO PO SCH (09:08)
[2017-04-10] MEDS: CENTRUM SILVER PO SCH (09:08)
[2017-04-10] MEDS: COZAAR PO SCH (09:08)
[2017-04-10] MEDS: PREDNISONE PO SCH (09:08)
[2017-04-10] MEDS: LASIX PO SCH ×2 (09:09→21:00)
[2017-04-10] MEDS: XARELTO PO SCH (17:02)
--- NOTE | 2017-04-10 17:12 | PROGRESS NOTE ---
DATE: 04/10/2017 SUBJECTIVE: Overall, the patient states she is doing reasonably well. The patient continues to have pelvic pain with movement, but, at rest, denies significant pain. Her p.o. intake has been reasonable. She denies fevers, chills, nausea, vomiting, shortness of breath, or chest discomfort. Objective: Vital signs: T-max 98.7 degrees, heart rate 57 to 80, respirations 12 to 18, blood pressure 115 to 157/48 to 69. General: Well-nourished, well-developed, no acute distress. Cardiovascular: Regular rate and rhythm. No significant murmurs, rubs, or gallops. Pulmonary: Clear to auscultation bilaterally. Abdomen: Soft, nontender, nondistended. Positive bowel sounds. Extremities: Moves all extremities well. No significant clubbing, cyanosis, or edema. Dermatologic: Evaluation reveals no evidence of rash. LABORATORY DATA: None. ASSESSMENT AND PLAN: 1. Pubic bone and pubic ramus fractures on the left - the patient's overall symptoms are controlled. She currently is being treated with as-needed tramadol. I appreciate Dr. Motta's consultation. We will initiate physical therapy. I have discussed the possibility of home health and physical therapy versus inpatient rehabilitation. We will see how patient does with physical therapy today and determine if inpatient or outpatient care is most appropriate. 2. History of deep venous thrombosis with multiple pulmonary thromboembolisms - the patient's Xarelto was resumed yesterday. We will continue to follow. 3. Polymyalgia rheumatica - we will continue the patient on prednisone therapy. She is manifesting no evidence of adrenal insufficiency. 4. Hypertension - we will continue her home medications. 5. Disposition - at this point, the patient continues to require [facility] care in a hospital setting. We will plan discharge home or rehab once appropriate. cc: Luca Anderson MD
[2017-04-10] MEDS: XANAX PO SCH (21:00)
[2017-04-11] MEDS: SYNTHROID PO SCH ×2 (05:36→06:17)
--- NOTE | 2017-04-11 06:47 | PROGRESS NOTE ---
DATE: 04/11/2017 SUBJECTIVE: Patient is an 86-year-old female who is 2 days status post fall sustaining a left pubic rami fracture. She is currently complaining, as expected, of discomfort. OBJECTIVE: On physical exam, the left hip has discomfort with gentle range of motion. Calf is soft. Her right ankle is able to actively dorsiflex the right ankle. Some mild tenderness to palpation laterally. IMPRESSIONS: 1. Left pubic rami fracture. 2. Healing right distal fibular fracture. PLAN: At this point, the patient will continue weightbearing as tolerated of bilateral lower extremities. Will obtain an x-ray of her right ankle for further evaluation. We will review the results. She is stable from an orthopedic standpoint. cc: MD Luca Bhandari MD
[2017-04-11] MEDS ORDERED: PRILOSEC PO SCH (09:00)
--- NOTE | 2017-04-11 09:04 | Diag Imaging Result Doc PS360 ---
ANKLE COMPLETE RIGHT - 04/11/2017 INDICATION: Fracture TECHNIQUE: Three views COMPARISON: None FINDINGS: There is a mildly displaced oblique fracture of the distal fibula. Bones are osteopenic. Severe degenerative changes of the mid tarsal joints. Severe degenerative heel spurs are present. There is mild widening of the ankle mortise. IMPRESSION: Distal fibula ankle fracture. Electronically signed by Tesfaye Robert 04/11/2017 9:02 AM
[2017-04-11] MEDS: ULTRAM PO PRN ×2 (09:16→16:33)
[2017-04-11] MEDS: LASIX PO SCH (09:25)
[2017-04-11] MEDS: LEXAPRO PO SCH (09:25)
[2017-04-11] MEDS: CENTRUM SILVER PO SCH (09:25)
[2017-04-11] MEDS: COZAAR PO SCH (09:26)
[2017-04-11] MEDS: PREDNISONE PO SCH (09:26)
[2017-04-11] MEDS: AMOXIL PO SCH (09:36)
[2017-04-11] MEDS: XARELTO PO SCH (16:33)
--- NOTE | 2017-04-11 19:15 | PROGRESS NOTE ---
DATE: 04/11/2017 SUBJECTIVE: Overall, patient continues to very slowly improve. This morning, patient did note some underlying depression and anxiety associated with her future and ability to recover. The patient was treated with encouragement and physical therapy through the day. Throughout the day, patient has achieved some improvement. Her spirits this evening are better. She walked with physical therapy, although a very short length. She denies fevers, chills, nausea, vomiting, shortness of breath or chest discomfort. Her p.o. intake is adequate. OBJECTIVE: Vital signs: Temperature maximum 99.4 degrees, heart rate 57-80, respirations 16-28, blood pressure 121-157/53-66. General: Well nourished, well developed, in no acute distress. Cardiovascular: Regular rate and rhythm. No significant murmurs, rubs, or gallops. Pulmonary: Clear to auscultation bilaterally. Abdomen: Soft, nontender, nondistended. Positive bowel sounds. Extremities: Moves all extremities well. No significant clubbing, cyanosis, or edema. Dermatologic: Evaluation reveals no evidence of rash. LABORATORY DATA: None. ASSESSMENT AND PLAN: 1. Left pubic bone and pubic ramus fractures-I appreciate Dr. Motta's consultation. We will continue on as-needed tramadol. We will continue physical therapy. We discussed home health versus rehabilitation in great detail today. Because of her significant limitation, we will pursue rehabilitation in the morning. 2. History of deep venous thrombosis with multiple pulmonary thromboembolisms-we will continue patient on Xarelto therapy. 3. Polymyalgia rheumatica-we will continue prednisone therapy. She has no evidence of adrenal insufficiency. 4. Hypertension-we will continue patient on her home regimen. 5. Disposition-at this point, patient continues to require [facility] care in a hospital setting. We will plan discharge to rehab in the morning should her condition continued to improve. cc: Luca Anderson MD
[2017-04-11] MEDS: XANAX PO SCH (21:26)
[2017-04-12] MEDS: SYNTHROID PO SCH ×2 (05:34→06:32)
[2017-04-12 06:29] LABS: MANUAL DIFF NEEDED? NO
[2017-04-12 06:35] LABS: BASO% 0.3 % (0.0-0.8); EOS% 3.9 % (0.0-10.0); HEMATOCRIT 34.8 % (37.0-47.0); HEMOGLOBIN 11.4 g/dL (12.0-16.0); IMM GRAN# 0.03 X1000 (0.0-0.04); IMM GRAN% 0.3 % (0.0-0.5); LYMPH% 14.6 % (20.5-51.1); MCH 30.2 PG (27-31); MCHC 32.8 g/dL (33-37); MCV 92.3 FL (81-99); MONO# 0.67 X1000 (0.11-0.59); MONO% 6.5 % (1.7-9.3); MPV 8.7 FL (7.4-10.4); NEUT% 74.4 % (42.2-75.2); PLT 228 X1000 (130-400); RBC 3.77 XMIL (4.2-5.4)
[2017-04-12 06:57] LABS: AGAP 10; ALBUMIN 3.3 g/dL (3.5-5.0); ALKALINE PHOSPHATASE 80 U/L (32-104); BUN 13 mg/dL (8-22); CALCIUM 9.1 mg/dL (8.8-10.2); CHLORIDE 97 mmol/L (98-107); COSMO 278; GOT 15 U/L (10-30); GPT 11 U/L (10-36); POTASSIUM 3.9 mmol/L (3.5-5.1); SODIUM 138 mmol/L (136-145); TCO2 31 mmol/L (25-35); TOTAL BILIRUBIN 0.64 mg/dL (0.20-1.00); TOTAL PROTEIN 6.2 g/dL (6.3-8.3)
[2017-04-12 07:28] VITALS: BP 135/54
[2017-04-12] MEDS ORDERED: MICRO-K PO SCH (09:00)
[2017-04-12] MEDS ORDERED: LASIX PO SCH (09:00)
[2017-04-12] MEDS: LEXAPRO PO SCH (09:55)
[2017-04-12] MEDS: PREDNISONE PO SCH (09:55)
[2017-04-12] MEDS: CENTRUM SILVER PO SCH (09:55)
[2017-04-12] MEDS: COZAAR PO SCH (09:55)
[2017-04-12] MEDS: AMOXIL PO SCH (09:56)
--- NOTE | 2017-04-12 10:25 | DISCHARGE SUMMARY ---
ADMISSION DATE: 04/09/2017 DISCHARGE DATE: 04/12/2017 ADMISSION DIAGNOSIS: Mechanical fall and hip pain. DISCHARGE DIAGNOSES: 1. Left pubic bone and pubic ramus fracture. 2. Healing right distal fibular fracture, present on arrival. 3. History of deep venous thrombosis with multiple pulmonary thromboembolisms, present on arrival. 4. Polymyalgia rheumatica, present on arrival. 5. Hypertension, present on arrival. PROCEDURES: 1. CT scans of the head and cervical spine were performed on 04/08/2017 which revealed chronic ischemic microvascular disease. No evidence of acute intracranial disease. Degenerative facet arthropathy of the cervical spine. No evidence of acute bony disease in the cervical spine. 2. CT scan of the pelvis was performed on 04/08/2017 which revealed nondisplaced fractures of the pubic bone and pubic ramus on the left. 3. Right ankle x-ray was performed on 04/11/2017 which revealed distal fibula ankle fracture. CONSULTATIONS: Dr. Motta with orthopedic surgery was consulted for further evaluation and management of pelvic fracture. HISTORY AND PHYSICAL EXAMINATION: See admit note. PHYSICAL EXAMINATION PRIOR TO DISCHARGE: Vital Signs: Temperature 97.7 degrees, heart rate 69, respirations 16, blood pressure is 135/54. General: Well nourished, well developed, no acute distress. Cardiovascular: Regular rate and rhythm. No significant murmurs, rubs, or gallops. Pulmonary: Clear to auscultation bilaterally. Abdomen: Soft, nontender, nondistended. Positive bowel sounds. Extremities: Moves all extremities well. She does have pain with movement of the left lower extremity. No clubbing, cyanosis, or edema. Dermatologic: Evaluation reveals no evidence of rash. LABORATORY DATA PRIOR TO DISCHARGE: White blood cell count 10.28, hemoglobin 11.4, hematocrit 34.8, platelet count is 228,000. Sodium 138, potassium 3.9, chloride 97, bicarb 13, BUN 0.8, glucose 134, calcium 9.1. Total bilirubin 0.64, total protein 6.2, albumin 3.3, alkaline phosphatase 80, AST 15, ALT 11. HOSPITAL COURSE: Patient was admitted as per history and physical examination. Hospital course per condition is as follows: 1. Left pubic bone and pubic ramus fractures-upon admission, patient was noted to have considerable pelvic pain. CT scan of the pelvis confirmed a left pubic bone and pubic ramus fracture. Dr. Motta with orthopedic surgery was consulted for further evaluation and management. Upon his assessment, it was felt weightbearing as tolerated was most appropriate. The patient was treated with physical therapy and as needed tramadol while hospitalized. After a long discussion with family, it was felt that a short stay at rehabilitation with aggressive physical therapy was the most appropriate. Patient will be discharged to rehabilitation today. We will follow patient closely as an outpatient. 2. Recent history of right distal fibular fracture-the patient is currently being followed by Dr. Enciso. A repeat x-ray was performed while hospitalized and demonstrated the persistence of the distal fracture. The patient was continued on weightbearing as tolerated with a walking boot. The patient will need to follow up closely with Dr. Enciso in this regard as well. Present at the time of discharge, pain was controlled. 3. History of deep venous thrombosis with multiple pulmonary thromboembolisms-patient is being treated with lifelong Xarelto. This was continued while hospitalized. 4. Polymyalgia rheumatica-patient has longstanding disease. She is steroid dependent. Prior to admission, patient was being titrated down on her steroid doses. For now, we will continue prednisone 7.5 mg daily. She demonstrated no evidence of adrenal insufficiency while hospitalized. 5. Hypertension-patient was continued on home medications while hospitalized with adequate control. DISCHARGE CONDITION: Good. DISPOSITION: Discharged to rehabilitation. MEDICATIONS: 1. Alprazolam 0.25 mg at bedtime. 2. Amoxicillin 250 mg daily. 3. Lexapro 5 mg daily. 4. Ashanti 180 mg daily as needed. 5. Lasix 40 mg daily. 6. Levothyroxine 150 mcg daily. 7. Losartan 100 mg daily. 8. Multivitamin daily. 9. Potassium chloride ER 8 mEq daily. 10. Prednisone 7.5 mg daily. 11. Xarelto 20 mg daily at 5 p.m. 12. Tramadol 50 mg 1 tablet every 6 hours as needed. 13. Albuterol nebulizer as needed. 14. Nexium 22.3 mg daily. FOLLOWUP: The patient is to follow up with me upon discharge from rehabilitation. Patient is to follow up with Dr. Enciso/Dr. Motta as arranged. cc: Luca Anderson MD
[2017-04-12] MEDS: ULTRAM PO PRN (13:03)
--- NOTE | 2017-04-13 18:19 | PROVIDER DOCUMENTATION ---
This chart was entered by Christoph Ruiz Scribe, acting as scribe for Surya Medina CRNP. HPI-Musculoskeletal Pain/Inj - GENERAL Chief Complaint: Hip Pain Stated Complaint: FALL Time Seen by Provider: 04/08/17 19:10 Source: patient - HX OF PRESENT ILLNESS-MUSKULOSKELTAL Nature of Presenting Problem: Pt is a 86 yof who presents to ER with CC of left hip pain secondary to a fall that occurred earlier today. Pt reports that she has had an increase in falls recently and broke her right ankle last month and currently has a boot on her RLE. Pt reports that she fell on Monday, hit the back of her head, and has some residual neck pain. Pt states that she fell today, landing on her left hip, but no deformities or rotation are noted. Pt normally uses a walker and is ambulatory, but states it is very painful. Pt is currently taking xarelto. Quality of Pain: reports: aching, cramping Severity in ED: mild, moderate Onset/Duration: unsure, this evening Timing: still present Any recent injury?: Yes Locality of Occurance: Home Similar Symptoms Previously?: Yes Recently seen or treated by another doctor?: Yes - FALL INJURY Location of Pain/Injury: reports: back (lumbar-saccral), pelvis (left hip) Pain Radiation: reports: no radiation Reason for Fall: reports: unknown Loss of Consciousness: no loss of consciousness Injury Associated Symptoms: reports: back/neck pain, joint pain, muscle aches, trouble walking. denies: arm pain, chest pain, diaphoresis, dizziness, nausea, shortness of breath, unable to bear weight, vomiting, weakness - BACK & NECK PAIN/INJURY Back/Neck Pain Location: reports: lumbar spine, sacrum, coccyx, other (left hip) Context / Method of Injury: reports: unknown Associated Symptoms: reports: lower back pain. denies: loss of bladder control , loss of bowel control, fever, muscle spasms, numbness in legs/feet, numbness in upper ext, sensory/motor loss, tingling in legs/feet, tingling in upper ext, weakness in legs/feet, weakness in upper ext Review of Systems - Adult - REVIEW OF SYSTEMS - ADULT Constitutional: denies: chills, fever, fatique, night sweats, weight gain, weight loss Eyes: reports: no symptoms reported Ears, Nose, Mouth & Throat: reports: no symptoms reported Cardiovascular: reports: no symptoms reported Respiratory: reports: no symptoms reported Gastrointestinal: reports: no symptoms reported Genitourinary: reports: no symptoms reported Musculoskeletal: reports: back pain, joint pain, muscle aches, neck pain. denies: bone pain, frequent leg cramps, joint swelling, muscle weakness Integumentary: reports: no symptoms reported Neurological: reports: no symptoms reported Psychiatric: reports: no symptoms reported Endocrine: reports: no symptoms reported Hematologic/Lymphatic: reports: no symptoms reported Allergic/Immunologic: reports: no symptoms reported All Other Systems: Reviewed and Negative Past History - Adult - PAST MEDICAL HISTORY-ADULT Review of Records: reports: Nursing Assessment Review, Medications Reviewed Cardiovascular: reports: arrhythmia, HTN - IMMUNIZATION STATUS Childhood Immunizations: See Nurse Assessment Flu Vaccine: See Nurse Assessment - FAMILY HISTORY Family History: reviewed, not pertinent Physical Exam-Injury Related - Physical Exam-Injury Related Initial Vital Signs Reviewed: Yes General Appearance: appears well, alert, mild distress Eyes: PERRL/EOMI, pink conjunctivae Neck: full range of motion, supple, C-spine tenderness (residual tenderness from Monday's fall). negative: non-tender Respiratory: chest non-tender, lungs clear, normal breath sounds, no pleuratic chest pain, no respiratory distress, no accessory muscle use. negative: respiratory distress, decreased breath sounds, accessory muscle use, wheezing Cardiovascular: normal peripheral pulses, regular rate, rhythm. negative: bradycardia, tachycardia, irregularly irregular Abdominal Exam: normal bowel sounds, non tender, soft, no organomegaly, no pulsatile mass. negative: guarding, rebound, tenderness Back Exam: normal inspection, no CVA tenderness, vertebral tenderness (lumbar- saccral), other (bruise on lower back, spans accross entire lumbar-saccral region). negative: no vertebral tenderness, CVA tenderness Extremity: normal range of motion, normal inspection, no pedal edema, no calf tenderness, normal capillary refill, pelvis stable, tenderness (left hip tender to palpation with bruise noted; Pt can ambulate but states it is very painful; No deformity or rotation noticed). negative: non-tender, normal gait, deformity , erythema, inflammation, swelling Integumentary: tenderness, contusion(s), other (bruise spanning entire lumbar- saccral region; Bruise to left hip). negative: swelling, laceration Neurologic: onion topper II-XII nml as tested, grossly normal, no motor/sensory deficits Psych/Mental Status: normal mood/affect, normal thought content, normal thought process, oriented x 3 Progress - PLAN OF CARE/RESULTS Progress/Plan/Lab Results: Orders Category Date Time Status Admit - [facility] Routine AdmDCTranf 04/09/17 00:25 Ordered Activity - Strict Bedrest ORDERED Care 04/09/17 00:25 Completed [place] Cath Insertion ORDERED Care 04/08/17 23:09 Completed Vital Signs Order Q 8-HR ASSESS Care 04/09/17 00:25 Active Z-Document. for Tele Applied ORDERED Care 04/09/17 00:[address] HEAD/C-SPINE W/O CONTRAST [CT] Stat Exams 04/08/17 19:[address] PELVIS W/O CONTRAST [CT] Stat Exams 04/08/17 19:09 Completed CBC WITH ELECTRONIC DIFF [HEME] Stat Lab 04/08/17 17:40 Completed CBC WITH NO DIFF [HEME] Routine Lab 04/09/17 05:41 Completed COMPREHENSIVE METABOLIC PANEL [CHEM] Stat Lab 04/08/17 17:40 Completed PROTIME WITH INR [COAG] Stat Lab 04/08/17 17:40 Completed PTT [COAG] Stat Lab 04/08/17 17:40 Completed Alprazolam [Xanax] Med 04/09/17 01:30 Discontinued 0.25 mg PO HS Escitalopram [Lexapro] Med 04/09/17 09:00 Discontinued 5 mg PO DAILY Fexofenadine [Ashanti] Med 04/09/17 00:25 Discontinued 180 mg PO DAILY PRN PRN Furosemide [Lasix] Med 04/09/17 09:00 Discontinued 20 mg PO BID Levothyroxine [Synthroid] Med 04/09/17 07:00 Discontinued 150 microgm PO DAILY@0700 Losartan [Cozaar] Med 04/09/17 09:00 Discontinued 100 mg PO QAM Morphine Med 04/09/17 00:25 Discontinued 2 mg IV Q4H PRN PRN Multivitamins/Minerals [Centrum Silver] Med 04/09/17 09:00 Discontinued 1 each PO DAILY Prednisone Med 04/09/17 09:00 Discontinued 7.5 mg PO DAILY Rivaroxaban [Xarelto] Med 04/09/17 17:00 Discontinued 20 mg PO DAILY@1700 Telemetry [OM.EQ] Routine Oth 04/09/17 00:25 Active Transfer/Admit Order [TRANSFER] Routine Transfer 04/08/17 23:04 Completed Result Diagrams: 04/12/17 06:18 04/12/17 06:17 Departure - Departure Date of Disposition Decision: 04/09/17 Time of Disposition Decision: 18:18 DIAGNOSIS: Pubic bone fracture Qualifiers: Encounter type: initial encounter Sublocation of pubis: unspecified portion of pubis Fracture type: closed Disposition: ADMITTED INPATIENT 09 Certified Medical Emergency: Emergent Condition: Stable - Critical Care Note This patient required my direct & personal management of CC.: No Attestation - Physician/ HANNA Attestation Patient care was provided by Advanced Practice Provider:: Yes Advanced Practice Provider:: Surya Medina Advanced Practice Provider documentation review:: The Mid-level provider documentation, treatment plan and medical decision making was reviewed by the physician who agrees with all treatment and medical decision making by the MLP. The physician spent face to face time with patient:: No Advanced Practice Provider documentation review:: Supervising physician onsite and consulted in the evaluation and care of this patient. The physician did not have a face to face encounter with the patient. This chart was documented by the indicated scribe, (Christoph Ruiz Scribe) and accurately reflects the services I performed and decisions made by me, Surya Medina CRNP, as attested by the provider's signature.
== END 2017-04-12 13:50 ==
LOC: ED 17:40 → 4N 23:30 → SUATTDRO 23:30
PROVIDERS: ADMIT Internal Medicine; ATTEND Internal Medicine